=== PATIENT | female | born 1980 | race Caucasian/White ===

== ENCOUNTER 2016-11-05 06:19 | Day surgery (SDC) | payer OTHER ==
[2016-11-05] MEDS ORDERED: Lidocaine 1% with EPINEPHrine 1:100,000 20 ML MDV ONE (06:45)
--- NOTE | 2016-11-05 07:00 | PCM.PREANE ---
Preanesthetic Assessment - Anesthesia/Transfusion/Family Hx Anesthesia History: Prior Anesthesia Without Reaction Family History of Anesthesia Reaction: No Transfusion History: No Prior Transfusion(s) - Review of Systems General: No Symptoms Pulmonary: No Symptoms Cardiovascular: No Symptoms Gastrointestinal: No symptoms Neurological: No Symptoms Other: Reports: None - Physical Assessment NPO Status Date: 11/04/16 O2 Sat by Pulse Oximetry: 98 Respiratory Rate: 16 Vital Signs: Last Vital Signs Temp 36.2 C 11/05/16 06:32 Pulse 69 11/05/16 06:32 Resp 16 11/05/16 06:32 BP 131/84 11/05/16 06:32 Pulse Ox 98 11/05/16 06:32 Height: 1.7 m Weight: 114.305 kg ASA Class: 2 Mental Status: Alert & Oriented x3 Airway Class: Mallampati = 2 Dentition: Reports: Normal Dentition ROM/Head Extension: Full Lungs: Clear to auscultation, Normal respiratory effort Cardiovascular: Regular Rate, Regular Rhythm - Lab Values: Laboratory Last Values WBC 6.80 K/uL (4.0-11.0) 11/04/16 13:36 RBC 4.37 M/uL (4.30-5.90) 11/04/16 13:36 Hgb 12.5 g/dL (12.0-16.0) 11/04/16 13:36 Hct 37.3 % (36.0-46.0) 11/04/16 13:36 MCV 85.4 fL (80.0-98.0) 11/04/16 13:36 MCH 28.6 pg (27.0-32.0) 11/04/16 13:36 MCHC 33.5 g/dL (31.0-37.0) 11/04/16 13:36 RDW Std Deviation 39.9 fl (28.0-62.0) 11/04/16 13:36 RDW Coeff of Afshan 13 % (11.0-15.0) 11/04/16 13:36 Plt Count 299 K/uL (150-400) 11/04/16 13:36 MPV 9.40 fL (7.40-12.00) 11/04/16 13:36 Nucleated RBC % 0.0 /100WBC 11/04/16 13:36 Nucleated RBCs # 0 K/uL 11/04/16 13:36 TSH 3rd Generation 1.00 uIU/mL (0.47-5.0) 11/04/16 13:36 HCG, Qual NEGATIVE (NEG) 11/04/16 13:36 - Allergies Allergies/Adverse Reactions: Allergies Allergy/AdvReac Type Severity Reaction Status Date / Time No Known Allergies Allergy Verified 11/03/16 11:33 - Anesthesia Plan Pre-Op Medication Ordered: None - Acknowledgements Anesthesia Type Planned: General Anesthesia, MAC Pt an Appropriate Candidate for the Planned Anesthesia: Yes Alternatives and Risks of Anesthesia Discussed w Pt/Guardian: Yes Pt/Guardian Understands and Agrees with Anesthesia Plan: Yes Additional Comments: GA LMA, or MAC PreAnesthesia Questionnaire HEENT History: Reports: Other (See Below) Other HEENT History: wears glasses/contacts Cardiovascular History: Reports: None Respiratory History: Reports: None Gastrointestinal History: Reports: GERD, PUD Genitourinary History: Reports: None 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: Musculoskeletal History: Reports: Fracture Other Musculoskeletal History: hx of fx toes Neurological History: Reports: Other (See Below) Other Neuro History: hx of motion sickness Psychiatric History: Reports: Anxiety, Depression Endocrine/Metabolic History: Reports: Obesity/BMI 30+ Hematologic History: Reports: None Immunologic History: Reports: None Oncologic (Cancer) History: Reports: None Dermatologic History: Reports: None - Past Surgical History Head Surgeries/Procedures: Reports: None HEENT Surgical History: Reports: None Cardiovascular Surgical History: Reports: None Respiratory Surgical History: Reports: None GI Surgical History: Reports: None Female Surgical History: Reports: D&C Endocrine Surgical History: Reports: None Musculoskeletal Surgical History: Reports: Other (See Below) Other Musculoskeletal Surgeries/Procedures:: excision of lipoma from back Oncologic Surgical History: Reports: None Dermatological Surgical History: Reports: None - SUBSTANCE USE Smoking Status *Q: Never Smoker Recreational Drug Use History: No - HOME MEDS Home Medications: Home Meds Escitalopram Oxalate [Lexapro] 20 mg PO DAILY 11/03/16 [History] Pantoprazole [ProTONIX] 40 mg PO DAILY 11/03/16 [History] Rizatriptan Benzoate [Maxalt] 5 mg PO ASDIRECTED PRN MDD 10 mg 11/03/16 [History ] valACYclovir HCl [Valtrex] 500 mg PO BID PRN 11/03/16 [History] - CURRENT (IN HOUSE) MEDS Current Meds: Current Medications Discontinued Medications Lidocaine/Epinephrine (Xylocaine 1% With Epinephrine 1:100,000) Confirm Administered Dose 20 ml .ROUTE .STK-MED ONE Stop: 11/05/16 06:46
[2016-11-05] MEDS ORDERED: Lidocaine 2% 5 ML SDV ONE (07:22)
[2016-11-05] MEDS ORDERED: Propofol 200 MG/20 ML SDV ONE ×2 (07:22→07:59)
[2016-11-05] MEDS ORDERED: Ketorolac 30 MG/ML SDV ONE (07:22)
[2016-11-05] MEDS ORDERED: Ondansetron 4 MG/2 ML SDV ONE (07:22)
[2016-11-05] MEDS ORDERED: fentaNYL 100 MCG/2 ML SDV ONE ×2 (07:23→07:45)
[2016-11-05] MEDS ORDERED: Midazolam 1 MG/ML 2 ML SDV ONE (07:23)
--- NOTE | 2016-11-05 08:24 | PCM.OPNOTE ---
- General Post-Op/Procedure Note Date of Surgery/Procedure: 11/05/16 Operative Procedure(s): LEEP Findings: posterior cervix with inflammation, nonstaining with Lugols, no discrete areas of acetowhite epithelium, yellow vaginal discharge, cultured Pre Op Diagnosis: PIPPA II Post-Op Diagnosis: Same Anesthesia Technique: General LMA Primary Surgeon: Aydee Squires Anesthesia Provider: Dorothy Alba Pathology: vaginal culture, ectocervix and endocervical curettings. Fluid Replacement, Intraop: 1,000 EBL in mLs: 25 Complications: None known Condition: Good
--- NOTE | 2016-11-05 08:44 | PCM48HPAN ---
Post Anesthesia Note - EVALUATION WITHIN 48HRS OF ANESTHETIC Vital Signs in Normal Range: Yes Patient Participated in Evaluation: Yes Respiratory Function Stable: Yes Airway Patent: Yes Cardiovascular Function Stable: Yes Hydration Status Stable: Yes Pain Control Satisfactory: Yes Nausea and Vomiting Control Satisfactory: Yes Mental Status Recovered: Yes
--- NOTE | 2016-11-05 08:44 | PCM.POSTAN ---
POST ANESTHESIA ASSESSMENT - MENTAL STATUS Mental Status: alert, oriented - RESPIRATORY Respiratory Status: respiratory rate WNL, airway patent, O2 saturation stable - CARDIOVASCULAR CV Status: pulse rate WNL, blood pressure stable - GASTROINTESTINAL GI Status: no symptoms - POST OP HYDRATION Hydration Status: adequate & stable
[2016-11-05 08:51] VITALS: BP 130/79
--- NOTE | 2016-11-05 12:15 | OR ---
SURGEON: Aydee Squires M.D. DATE OF PROCEDURE: 11/05/2016 PREOPERATIVE DIAGNOSIS: PIPPA-2. POSTOPERATIVE DIAGNOSIS: PIPPA-2. PROCEDURE PERFORMED: Loop electrode excisional procedure of the cervix. ANESTHESIA: General LMA and cervical block. ESTIMATED BLOOD LOSS: 25 mL. FLUIDS: 1000 mL of crystalloid. FINDINGS: The posterior lip of the cervix was red and inflamed and nonstaining with Lugol's with peeling epithelium. There were, however, no discrete areas of acetowhite epithelium. There was a yellowish vaginal discharge, which was cultured. SPECIMENS: Ectocervix, endocervical curettings, and vaginal culture. COMPLICATIONS: None known. DISPOSITION: Stable to recovery. BRIEF HISTORY: This is a 36-year-old female. She presents with cervical biopsy showing PIPPA-2, for treatment with a loop electrode excisional procedure. She does have an IUD in place. It is due to be changed in April. She understands that with the LEEP procedure, the IUD string will be cut. After extensive discussions of options, she does desire to proceed with permanent sterilization at a later time, as I cannot do that at this facility, and she understands that when I do cut the IUD string I may need to use a hysteroscope to remove the IUD, and she is accepting of that. Therefore, the later date she will be scheduled for tubal ligation with IUD removal. Ultrasound was performed due to right lower quadrant discomfort. There was no evidence of any abnormality on the right ovary. There was some irregularity of the endometrium with some fluid within and therefore further evaluation with hysteroscopy will be performed at the time of tubal. Today, we will just proceed with the LEEP procedure with risks discussed including bleeding, infection, cutting of the IUD string, if she were to become in the future risk of cervical incompetence, and anesthesia risk. Understanding all these risks, she does desire to proceed. DESCRIPTION OF PROCEDURE: With the patient in dorsal lithotomy position, under adequate IV sedation and LMA analgesia, the patient was placed in the dorsal lithotomy position with some Trendelenburg, speculum was placed in the vagina. The cervix was treated with dilute acetic acid and colposcopy was performed with findings as noted above. A total of 30 mL of 0.5% Marcaine with epinephrine was injected at the 12, 5, and 7 o'clock position of the cervix. The Lugol solution was applied. A large LEEP loop was utilized to excise the nonstaining area in one pass with attention to the posterior lip of the cervix, where the inflamed area was apparent. Sharp curettage of the endocervix was then performed and this tissue was collected with a Cytobrush. The base of the LEEP area was coagulated using 60 pure coag. The cutting was 40 pure cut for the LEEP procedure. Monsel's solution was applied and the LEEP bed was completely hemostatic. Therefore, all the instruments were removed from the vagina. Vaginal culture had been obtained prior to proceeding with a LEEP procedure due to some yellowish discharge. She will be continued on MetroGel vaginally. Final sponge, needle, and instrument counts were reported as correct. There were no known complications. The patient was transferred to recovery in good condition. JUSTINA MATHIAS /[id number]
== END 2016-11-05 09:34 | disposition home or self-care (01) ==
LOC: MW.SDS 06:19
PROVIDERS: ATTEND Obstetrics & Gynecology
PROC: 0UBC7ZZ Excision of Cervix, Via Natural or Artificial Opening (ICD-10-PCS; principal; 2016-11-05)
DX: N87.1 Moderate cervical dysplasia (principal); E04.9 Nontoxic goiter, unspecified; F41.9 Anxiety disorder, unspecified; F32.9 Major depressive disorder, single episode, unspecified; K21.9 Gastro-esophageal reflux disease without esophagitis; E66.9 Obesity, unspecified; Z79.899 Other long term (current) drug therapy; Z98.890 Other specified postprocedural states; Z68.39 Body mass index [BMI] 39.0-39.9, adult
CPT/HCPCS: 36415; 57460; 84443; 84703; 85027; 87070; J1885; J2250; J2405; J3010; 00940; 88305; 88307; J2704

== ENCOUNTER 2022-03-21 11:19 | Emergency (ER) | payer BC ==
[2022-03-21] MEDS ORDERED: Lidocaine 5% 700 MG Patch TRDERM ONE (13:24)
[2022-03-21] MEDS ORDERED: Doxycycline 100 MG Cap PO STA (13:24)
[2022-03-21 15:23] VITALS: BP 133/88; PULSE 96
== END 2022-03-21 14:10 | disposition home or self-care (01) ==
LOC: MW.ED 11:19
DX: L03.115 Cellulitis of right lower limb (principal); K21.9 Gastro-esophageal reflux disease without esophagitis; E66.9 Obesity, unspecified; Z68.31 Body mass index [BMI] 31.0-31.9, adult; Z79.899 Other long term (current) drug therapy
CPT/HCPCS: 93971; 99283; A9270